=== PATIENT | male | born 1985 | race Caucasian/White ===

== ENCOUNTER 2019-01-01 19:59 | Emergency (ER) | payer MEDICAID ==
--- NOTE | 2019-01-01 20:11 | ERPHSYRPT ---
- History of Present Illness Time Seen by Provider: 01/01/19 20:11 Source: patient Exam Limitations: no limitations Physician History: 33 y/o white male iv drug user until he quit 9 days ago presents with flu like sx of body aches, nausea, no vomiting and yellow eyes for approx a week. his sig other has similar sx. pt noticed his bms slide attendant in color and dark urine present. he has heartburn and mild epigastric abd pain. Timing/Duration: day(s) (7) Severity: mild Associated Symptoms: nausea, vomiting, abdominal pain, loss of appetite, malaise , other (body aches) Allergies/Adverse Reactions: Penicillins Allergy (Verified 01/01/19 20:34) Home Medications: No Reportable Medications [No Reported Medications] 01/01/19 [History] - Review of Systems Constitutional: Malaise, Weakness Eyes: No Symptoms Ears, Nose, & Throat: No Symptoms Respiratory: No Symptoms Cardiac: No Symptoms Abdominal/Gastrointestinal: Abdominal Pain, Nausea, Vomiting, Appetite Changes, No Diarrhea Genitourinary Symptoms: No Symptoms Skin: Other (jaundiced) Neurological: No Symptoms Psychological: Drug Abuse Endocrine: No Symptoms Hematologic/Lymphatic: No Symptoms Immunological/Allergic: No Symptoms All Other Systems: Reviewed and Negative - Past Medical History Neurological History: No Pertinent History ENT History: No Pertinent History Cardiac History: No Pertinent History Respiratory History: No Pertinent History Endocrine Medical History: No Pertinent History Musculoskeletal History: No Pertinent History GI Medical History: No Pertinent History History: No Pertinent History Psycho-Social History: No Pertinent History - Past Surgical History Neuro Surgical History: No Pertinent History Cardiac: No Pertinent History Respiratory: No Pertinent History Gastrointestinal: No Pertinent History Genitourinary: No Pertinent History Musculoskeletal: No Pertinent History Male Surgical History: No Pertinent History - Nursing Vital Signs Nursing Vital Signs: Initial Vital Signs Temperature 98.5 F 01/01/19 20:35 Pulse Rate 105 H 01/01/19 20:35 Respiratory Rate 20 01/01/19 20:35 Blood Pressure 126/94 01/01/19 20:35 O2 Sat by Pulse Oximetry 100 01/01/19 20:35 Pain Scale Pain Intensity 4 - Physical Exam General Appearance: mild distress, alert, anxiety Eye Exam: scleral icterus Ears, Nose, Throat Exam: normal ENT inspection, dry mucous membranes Neck Exam: normal inspection, non-tender, supple, full range of motion Respiratory Exam: normal breath sounds, lungs clear, airway intact, No chest tenderness, No respiratory distress Cardiovascular Exam: regular rate/rhythm, normal heart sounds, normal peripheral pulses Gastrointestinal/Abdomen Exam: soft, normal bowel sounds, tenderness (mild epigastric), No guarding, No rebound Rectal Exam: not done Back Exam: normal inspection, normal range of motion, No CVA tenderness, No vertebral tenderness Extremity Exam: normal inspection, normal range of motion, pelvis stable Neurologic Exam: alert, oriented x 3, cooperative, 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 Skin Exam: jaundice Lymphatic Exam: No adenopathy SpO2 Interpretation: normal O2 Delivery: Room Air - Course Nursing assessment & vital signs reviewed: Yes Ordered Tests: Active Orders 24 hr Category Date Time Status IV Insertion STAT Care 01/01/19 20:48 Active ABDOMEN AND PELVIS W/0 CONTRAS [CT] Stat Exams 01/01/19 20:48 Completed AMYLASE Stat Lab 01/01/19 21:49 Received BLOOD CULTURE Stat Lab 01/01/19 20:48 Ordered CBC W DIFF Stat Lab 01/01/19 21:49 Completed CMP Stat Lab 01/01/19 21:49 Received LIPASE Stat Lab 01/01/19 21:49 Received Lactic Acid Stat Lab 01/01/19 21:19 Results [place] Screen Stat Lab 01/01/19 21:49 Completed UA W/RFX UR CULTURE Stat Lab 01/01/19 21:07 Completed Medication Summary Discontinued Medications Generic Name Dose Route Start Last Admin Trade Name Freq PRN Reason Stop Dose Admin Famotidine 40 mg 01/01/19 20:48 01/01/19 21:30 Pepcid 20 Mg Vial IV 01/01/19 20:49 40 mg STAT ONE Administration Famotidine Confirm 01/01/19 21:23 Pepcid 20 Mg Vial Administered 01/01/19 21:24 Dose 40 mg IV .STK-MED ONE Sodium Chloride 1,000 mls @ 999 mls/hr 01/01/19 20:48 01/01/19 22:35 Sodium Chloride 0.9% 1000 Ml IV 01/01/19 21:48 Infused .Q1H1M STA Infusion Sodium Chloride Confirm 01/01/19 21:23 Sodium Chloride 0.9% 1000 Ml Administered 01/01/19 21:24 Dose 1,000 mls @ ud .ROUTE .STK-MED ONE Ondansetron HCl 4 mg 01/01/19 20:48 01/01/19 21:27 Zofran 4 Mg/2 Ml Vial IV 01/01/19 20:49 4 mg STAT ONE Administration Ondansetron HCl Confirm 01/01/19 21:22 Zofran 4 Mg/2 Ml Vial Administered 01/01/19 21:23 Dose 4 mg .ROUTE .K-MED ONE Lab/Rad Data: Laboratory Result Diagrams 01/01/19 21:49 Laboratory Results 01/01/19 01/01/19 01/01/19 Range/Units 21:49 21:49 21:19 WBC 4.0 (4.0-10.5) K/mm3 RBC 5.40 (4.1-5.6) M/mm3 Hgb 15.4 (12.5-18.0) gm/dl Hct 46.9 (42-50) % MCV 86.9 (78-100) fl MCH 28.5 (26-32) pg MCHC 32.8 (32-36) g/dl RDW 13.9 (11.5-14.0) % Plt Count 209 (150-450) K/mm3 MPV 12.8 H (6-9.5) fl Gran % 60.4 (36.0-66.0) % Eos # (Auto) 0.04 (0-0.5) Absolute Lymphs (auto) 0.94 L (1.0-4.6) Absolute Monos (auto) 0.57 (0.0-1.3) Lymphocytes % 23.7 L (24.0-44.0) % Monocytes % 14.4 H (0.0-12.0) % Eosinophils % 1.0 (0.00-5.0) % Basophils % 0.5 (0.0-0.4) % Absolute Granulocytes 2.39 (1.4-6.9) Basophils # 0.02 (0-0.4) Lactic Acid 2.0 (0.4-2.0) Urine Color (YELLOW) Urine Appearance (CLEAR) Urine pH (5-6) Ur Specific [place] (1.005-1.025) Urine Protein (Negative) Urine Ketones (NEGATIVE) Urine Blood (0-5) Henry/ul Urine Nitrite (NEGATIVE) Urine Bilirubin (NEGATIVE) Urine Urobilinogen (0-1) mg/dL Ur Leukocyte Esterase (NEGATIVE) Urine WBC (Auto) (0-5) /HPF Urine RBC (Auto) (0-2) /HPF U Epithel Cells (Auto) (FEW) /HPF Urine Bacteria (Auto) (NEGATIVE) /HPF Urine Mucus (Auto) (NEGATIVE) /HPF Urine Culture Reflexed (NO) Urine Glucose (NEGATIVE) mg/dL Monoscreen POSITIVE (Negative) 01/01/19 Range/Units 21:07 WBC (4.0-10.5) K/mm3 RBC (4.1-5.6) M/mm3 Hgb (12.5-18.0) gm/dl Hct (42-50) % MCV (78-100) fl MCH (26-32) pg MCHC (32-36) g/dl RDW (11.5-14.0) % Plt Count (150-450) K/mm3 MPV (6-9.5) fl Gran % (36.0-66.0) % Eos # (Auto) (0-0.5) Absolute Lymphs (auto) (1.0-4.6) Absolute Monos (auto) (0.0-1.3) Lymphocytes % (24.0-44.0) % Monocytes % (0.0-12.0) % Eosinophils % (0.00-5.0) % Basophils % (0.0-0.4) % Absolute Granulocytes (1.4-6.9) Basophils # (0-0.4) Lactic Acid (0.4-2.0) Urine Color AGNES (YELLOW) Urine Appearance CLEAR (CLEAR) Urine pH 5.0 (5-6) Ur Specific [place] 1.020 (1.005-1.025) Urine Protein 30 (Negative) Urine Ketones NEGATIVE (NEGATIVE) Urine Blood NEGATIVE (0-5) Henry/ul Urine Nitrite NEGATIVE (NEGATIVE) Urine Bilirubin MODERATE (NEGATIVE) Urine Urobilinogen 4 (0-1) mg/dL Ur Leukocyte Esterase NEGATIVE (NEGATIVE) Urine WBC (Auto) 3-5 (0-5) /HPF Urine RBC (Auto) NONE (0-2) /HPF U Epithel Cells (Auto) NONE (FEW) /HPF Urine Bacteria (Auto) NONE (NEGATIVE) /HPF Urine Mucus (Auto) SLIGHT (NEGATIVE) /HPF Urine Culture Reflexed NO (NO) Urine Glucose NEGATIVE (NEGATIVE) mg/dL Monoscreen (Negative) - Progress Progress: improved, pain not gone completely, re-examined Progress Note: 01/01/19 23:13 ct abd/pelvis no acute process. Counseled pt/family regarding: lab results, diagnosis, need for follow-up, rad results - Departure Departure Disposition: Home Clinical Impression: Viral illness, Mononucleosis, Elevated liver enzymes Condition: Stable Critical Care Time: No Additional Instructions: drink plenty of fluids. follow up with primary doctor for further management and to obtain results from hepatitis profile. avoid further drug abuse.
[2019-01-01] MEDS ORDERED: Pepcid 20 MG VIAL IV ONE ×2 (20:48→21:23)
[2019-01-01] MEDS ORDERED: Sodium Chloride 0.9% 1000 ML 1,000 ML IV STA ×2 (20:48→23:24)
[2019-01-01] MEDS ORDERED: Zofran 4 MG/2 ML VIAL IV ONE (20:48)
[2019-01-01 21:17] LABS: Appearance CLEAR (CLEAR); Bilirubin MODERATE (NEGATIVE); Blood NEGATIVE Ery/ul (0-5); Glucose NEGATIVE (NEGATIVE); Ketones NEGATIVE (NEGATIVE); Leukocyte Esterase NEGATIVE (NEGATIVE); Mucus SLIGHT /HPF (NEGATIVE); Nitrite NEGATIVE (NEGATIVE); Protein,Urine Dip 30 (Negative); Urobilinogen 4 mg/dL (0-1)
[2019-01-01] MEDS ORDERED: Zofran 4 MG/2 ML VIAL ONE (21:22)
[2019-01-01] MEDS ORDERED: Sodium Chloride 0.9% 1000 ML 1,000 ML ONE ×2 (21:23→23:24)
[2019-01-01 21:47] LABS: BASOPHIL % 0.5 % (0.0-0.4); Basophil (Absolute #) 0.02 (0-0.4); Eosinophil (Absolute #) 0.04 (0-0.5); Granulocyte Absolute (ANC) 2.39 (1.4-6.9); Granulocytes % 60.4 % (36.0-66.0); Hematocrit 46.9 % (42-50); Hemoglobin 15.4 gm/dl (12.5-18.0); Lymphocyte (Absolute #) 0.94 (1.0-4.6); Lymphocytes % 23.7 % (24.0-44.0); Mean Cell Volume 86.9 fl (78-100); Mean Corpuscular Hemoglobin 28.5 pg (26-32); Mean Corpuscular Hgb Concent. 32.8 g/dl (32-36); Mean Platelet Volume 12.8 fl (6-9.5); Monocyte (Absolute #) 0.57 (0.0-1.3); Monocytes % 14.4 % (0.0-12.0); Platelet Count 209 K/mm3 (150-450); Red Cell Distribution Width 13.9 % (11.5-14.0)
[2019-01-01 21:59] LABS: ALBUMIN 3.5 g/dL (3.5-5.0); ALKALINE PHOSPHATASE 184 U/L (38-126); AMYLASE 76 U/L (30-110); ANION GAP 13.5 MEQ/L (5-15); BLOOD UREA NITROGEN 11 mg/dL (9-20); CHLORIDE 99 mmol/L (98-107); Calcium 8.8 mg/dL (8.4-10.2); Carbon Dioxide 27 mmol/L (22-30); Creatinine 1 0.88 mg/dL (0.66-1.25); Glucose 99 mg/dL (74-106); LIPASE 33 U/L (23-300); Potassium 3.4 mmol/L (3.5-5.1); SODIUM 136 mmol/L (137-145)
--- NOTE | 2019-01-01 22:33 | XRAY ---
Indication: Abdomen pain, vomiting, and jaundice 3 days. Multiple contiguous axial images obtained through the abdomen and pelvis without contrast as ordered. Comparison: None. Lung bases are clear. Heart is not enlarged. Mild distal esophageal wall thickening, possible esophagitis. Noncontrasted stomach and bowel loops appear nonobstructed. Normal appendix. Mild diffuse scattered colonic fecal debris including rectum. Gallbladder partially contracted without gallstones or biliary distention. No free fluid/air. Remaining liver, gallbladder, pancreas, spleen, adrenal glands, kidneys, ureters, bladder, and aorta appear unremarkable for noncontrast exam. Osseous structures intact. Impression: 1. Mild fecal stasis without obstruction. 2. Remaining CT abdomen/pelvis without contrast exam is negative. Comment: Preliminary interpretation was made by [facility]. No critical discrepancy. CTDI 14.37
[2019-01-01 23:16] LABS: SGOT/AST 2313 U/L (17-59); SGPT/ALT 3536 U/L (0-50)
[2019-01-01 23:42] LABS: Slide Review 1 YES
[2019-01-02 00:23] VITALS: BP 111/82; PULSE 97; O2SAT 99
[2019-01-02 21:22] LABS: HEPATITIS A IGM Reactive (Non Reactive); HEPATITIS B VIRUS CORE TOT AB Non Reactive (Non Reactive); Hepatitis B Surface Ab.Quant. <3.50 mIU/mL (0.00-8.49); Hepatitis B Surface Antigen Non Reactive (Non Reactive)
[2019-01-03 10:20] LABS: HEPATITIS C VIRUS ANTIBODY Weak Reactive (Non Reactive)
== END 2019-01-02 02:00 | disposition home or self-care (01) ==
LOC: ED 19:59
DX: B34.9 Viral infection, unspecified (principal); B27.90 Infectious mononucleosis, unspecified without complication; R74.8 Abnormal levels of other serum enzymes
CPT/HCPCS: 36000; 36415; 74176; 80053; 80074; 81001; 82150; 83605; 83690; 85025; 86308; 87040; 96360; 96361; 96374; 96375; 99284; J2405

== ENCOUNTER 2021-11-25 21:45 | Emergency (ER) | payer MEDICAID ==
[2021-11-25 23:20] LABS: Appearance CLEAR (CLEAR); Bilirubin NEGATIVE (NEGATIVE); Dipstick done @ ? MAIN LAB; Glucose NEGATIVE (NEGATIVE); Ketones NEGATIVE (NEGATIVE); Nitrite NEGATIVE (NEGATIVE); Ph 5.5 (5-6); Protein,Urine Dip NEGATIVE (Negative); RBC NEGATIVE Ery/ul (0-5); Specific Gravity >=1.030 (1.005-1.025); Urobilinogen 0.2 mg/dL (0-1)
[2021-11-25] MEDS ORDERED: Sodium Chloride 0.9% 1000 ML 1,000 ML ONE (23:22)
[2021-11-25 23:24] LABS: Mucus SLIGHT /HPF (NEGATIVE); Urine Cultured Indicated? NO
[2021-11-25] MEDS: Sodium Chloride 0.9% 1000 ML 1,000 ML IV SCH (23:29)
[2021-11-25 23:39] LABS: Absolute Neutrophil Ct (ANC) 4.22 x10^3/uL (1.4-6.9); Basophil (Absolute #) 0.08 x10^3/uL (0-0.4); Eosinophil % 4.3 % (0.00-5.0); Hematocrit 37.8 % (42-50); Hemoglobin 12.3 g/dL (12.5-18.0); Lymphocyte (Absolute #) 1.89 x10^3/uL (1.0-4.6); Mean Cell Volume 86.1 fL (78-100); Mean Corpuscular Hgb Concent. 32.5 g/dL (32-36); Monocyte (Absolute #) 0.49 x10^3/uL (0.0-1.3); Neutrophil % 60.5 % (36.0-66.0); Platelet Count 291 x10^3/uL (150-450); Red Blood Count 4.39 x10^6/uL (4.1-5.6); Red Cell Distribution Width 13.3 % (11.5-14.0)
[2021-11-25 23:52] LABS: ALBUMIN 3.9 g/dL (3.5-5.0); ALKALINE PHOSPHATASE 116 U/L (38-126); ANION GAP 13.1 MEQ/L (5-15); BLOOD UREA NITROGEN 16 mg/dL (9-20); CHLORIDE 103 mmol/L (98-107); Calcium 9.1 mg/dL (8.4-10.2); Carbon Dioxide 26 mmol/L (22-30); Creatinine 1 0.98 mg/dL (0.66-1.25); EST GLOMERULAR FILTRATION RATE > 60.0 ML/MIN; Glucose 95 mg/dL (74-106); Potassium 3.7 mmol/L (3.5-5.1); SGOT/AST 30 U/L (17-59); SGPT/ALT 28 U/L (0-50); SODIUM 138 mmol/L (137-145); Total Protein 7.3 g/dL (6.3-8.2)
[2021-11-26 00:23] VITALS: BP 119/71; PULSE 97; O2SAT 100
--- NOTE | 2021-11-26 00:49 | ERPHSYRPT ---
- History of Present Illness Time Seen by Provider: 11/25/21 22:30 Source: patient Exam Limitations: no limitations Patient Subjective Stated Complaint: pt states "I have been sick for a couple days. My lower back has been hurting and I had a red streak up my L arm the oth er day." Triage Nursing Assessment: Pt was laying down on the floor in waiting room, Pt ambulatory to room by self, pt alert and oriented x3, pt c/o general symptoms including neck pain and L flank pain, pt has hx of meth use, last used 4 days ago, pt afebrile, pt denies cough, fever, chest pain, or sob Physician History: Patient is a 36-year-old male presents to emergency department for evaluation of possible "blood infection". Patient admits to being an IV drug user. Patient used methamphetamine approximately 4 days ago. Patient observed a streak up his arm at that time and thought it was an infection. The streaking has since resolved. Patient has been experiencing some vague back pain. No change in bowel bladder function. No saddle anesthesia. Subjective fever and chills. Symptoms are mild to moderate in intensity. Patient declined pain medication. He voices no other complaints or concerns at this time. Timing/Duration: today Severity: moderate Modifying Factors: Improves With: movement (Movement and palpation to the low back reproduces back pain.) Associated Symptoms: denies symptoms Allergies/Adverse Reactions: Penicillins Allergy (Verified 11/25/21 22:11) Home Medications: No Reportable Medications [No Reported Medications] 01/01/19 [History] Hx Tetanus, Diphtheria Vaccination/Date Given: Yes Hx Influenza Vaccination/Date Given: No Hx Pneumococcal Vaccination/Date Given: No Immunizations Up to Date: No Travel Risk - International Travel Have you traveled outside of the country in past 3 weeks: No - Coronavirus Screening Are you exhibiting any of the following symptoms?: No Close contact with a COVID-19 positive Pt in past 14-21 Days: No - Vaccine Status Have you recieved a Covid-19 vaccination: No - Review of Systems Constitutional: No Symptoms, No Fever, No Chills Eyes: No Symptoms Ears, Nose, & Throat: No Symptoms Respiratory: No Symptoms, No Cough, No Dyspnea Cardiac: No Symptoms, No Chest Pain, No Edema, No Syncope Abdominal/Gastrointestinal: No Symptoms, No Abdominal Pain, No Nausea, No Vomiting, No Diarrhea Genitourinary Symptoms: No Symptoms, No Dysuria Musculoskeletal: No Symptoms, No Back Pain, No Neck Pain Skin: No Symptoms, No Rash Neurological: No Symptoms, No Dizziness, No Focal Weakness, No Sensory Changes Psychological: No Symptoms Endocrine: No Symptoms Hematologic/Lymphatic: No Symptoms Immunological/Allergic: No Symptoms All Other Systems: Reviewed and Negative - Past Medical History Pertinent Past Medical History: No Neurological History: No Pertinent History ENT History: No Pertinent History Cardiac History: No Pertinent History Respiratory History: No Pertinent History Endocrine Medical History: No Pertinent History Musculoskeletal History: No Pertinent History GI Medical History: Hepatitis, Ulcer History: No Pertinent History Psycho-Social History: Depression Male Reproductive Disorders: No Pertinent History - Past Surgical History Past Surgical History: Yes Neuro Surgical History: No Pertinent History Cardiac: No Pertinent History Respiratory: No Pertinent History Gastrointestinal: No Pertinent History Genitourinary: No Pertinent History Musculoskeletal: No Pertinent History Male Surgical History: No Pertinent History Other Surgical History: hernia repain at infancy and ACL repair at 19. - Social History Smoking Status: Never smoker How long have you smoked: years Exposure to second hand smoke: No Drug Use: marijuana, methamphetamines Patient Lives Alone: No - Nursing Vital Signs Nursing Vital Signs: Initial Vital Signs Temperature 98.7 F 11/25/21 22:12 Pulse Rate 106 H 11/25/21 22:12 Respiratory Rate 18 11/25/21 22:12 Blood Pressure 144/97 11/25/21 22:12 O2 Sat by Pulse Oximetry 100 11/25/21 22:12 Pain Scale Pain Intensity 5 - Physical Exam General Appearance: no apparent distress, alert Eye Exam: PERRL/EOMI, eyes nml inspection Ears, Nose, Throat Exam: normal ENT inspection, TMs normal, pharynx normal, moist mucous membranes Neck Exam: normal inspection, non-tender, supple, full range of motion Respiratory Exam: normal breath sounds, lungs clear, airway intact, No r espiratory distress Cardiovascular Exam: regular rate/rhythm, normal heart sounds, normal peripheral pulses Gastrointestinal/Abdomen Exam: soft, normal bowel sounds, No tenderness, No mass Back Exam: normal inspection, normal range of motion, No CVA tenderness, No vertebral tenderness Extremity Exam: normal inspection, normal range of motion, pelvis stable Neurologic Exam: alert, oriented x 3, cooperative, normal mood/affect, nml cerebellar function, nml station & gait, sensation nml, No motor deficits Skin Exam: normal color, warm, dry, No rash Lymphatic Exam: No adenopathy SpO2 Interpretation: normal SpO2: 100 O2 Delivery: Room Air - Course Nursing assessment & vital signs reviewed: Yes Ordered Tests: Active Orders 24 hr Category Date Time Status IV Insertion STAT Care 11/25/21 23:11 Active Pulse Oximetry (ED) STAT Care 11/25/21 23:11 Active BLOOD CULTURE Stat Lab 11/25/21 23:36 Received CBC W DIFF Stat Lab 11/25/21 23:35 Completed CMP Stat Lab 11/25/21 23:35 Completed Lactic Acid Stat Lab 11/25/21 23:24 Completed UA W/RFX CULTURE Stat Lab 11/25/21 23:13 Completed Medication Summary Generic Name Dose Route Start Last Admin Trade Name Freq PRN Reason Stop Dose Admin Sodium Chloride 1,000 mls @ 100 mls/hr 11/25/21 23:15 11/25/21 23:29 Sodium Chloride 0.9% 1000 Ml IV 12/25/21 23:14 100 mls/hr .Q10H JAN Administration Lab/Rad Data: Laboratory Result Diagrams 11/25/21 23:35 11/25/21 23:35 Laboratory Results 11/25/21 11/25/21 11/25/21 Range/Units 23:35 23:35 23:24 WBC 7.0 (4.0-10.5) x10^3/uL RBC 4.39 (4.1-5.6) x10^6/uL Hgb 12.3 L (12.5-18.0) g/dL Hct 37.8 L (42-50) % MCV 86.1 (78-100) fL MCH 28.0 (26-32) pg MCHC 32.5 (32-36) g/dL RDW 13.3 (11.5-14.0) % Plt Count 291 (150-450) x10^3/uL MPV 11.0 (7.5-11.0) fL Gran % 60.5 (36.0-66.0) % Immature Gran % (Auto) 0.1 (0.00-0.4) % Nucleat RBC Rel Count 0.0 (0.00-0.1) % Eos # (Auto) 0.30 (0-0.5) x10^3/uL Immature Gran # (Auto) 0.01 (0.00-0.03) x10^3u/L Absolute Lymphs (auto) 1.89 (1.0-4.6) x10^3/uL Absolute Monos (auto) 0.49 (0.0-1.3) x10^3/uL Absolute Nucleated RBC 0.00 (0.00-0.01) x10^3u/L Lymphocytes % 27.0 (24.0-44.0) % Monocytes % 7.0 (0.0-12.0) % Eosinophils % 4.3 (0.00-5.0) % Basophils % 1.1 (0.0-0.4) % Absolute Granulocytes 4.22 (1.4-6.9) x10^3/uL Basophils # 0.08 (0-0.4) x10^3/uL Sodium 138 (137-145) mmol/L Potassium 3.7 (3.5-5.1) mmol/L Chloride 103 (98-107) mmol/L Carbon Dioxide 26 (22-30) mmol/L Anion Gap 13.1 (5-15) MEQ/L BUN 16 (9-20) mg/dL Creatinine 0.98 (0.66-1.25) mg/dL Estimated GFR > 60.0 ML/MIN Glucose 95 (74-106) mg/dL Lactic Acid 1.9 (0.4-2.0) Calcium 9.1 (8.4-10.2) mg/dL Total Bilirubin 0.10 L (0.2-1.3) mg/dL AST 30 (17-59) U/L ALT 28 (0-50) U/L Alkaline Phosphatase 116 (38-126) U/L Serum Total Protein 7.3 (6.3-8.2) g/dL Albumin 3.9 (3.5-5.0) g/dL Urinalys Dipstick Clnc Urine Color (YELLOW) Urine Appearance (CLEAR) Urine pH (5-6) Ur Specific [place] (1.005-1.025) POC Urine Protein Conf (Negative) Urine Ketones (NEGATIVE) Urine Nitrite (NEGATIVE) Urine Bilirubin (NEGATIVE) Urine Urobilinogen (0-1) mg/dL Urine Leukocytes (NEGATIVE) Urine WBC (Auto) (0-5) /HPF Urine RBC (Auto) (0-2) /HPF U Epithel Cells (Auto) (FEW) /HPF Urine Bacteria (Auto) (NEGATIVE) /HPF Urine RBC (0-5) Henry/ul Urine Mucus (Auto) (NEGATIVE) /HPF Ur Culture Indicated? Urine Glucose (NEGATIVE) mg/dL 11/25/21 Range/Units 23:13 WBC (4.0-10.5) x10^3/uL RBC (4.1-5.6) x10^6/uL Hgb (12.5-18.0) g/dL Hct (42-50) % MCV (78-100) fL MCH (26-32) pg MCHC (32-36) g/dL RDW (11.5-14.0) % Plt Count (150-450) x10^3/uL MPV (7.5-11.0) fL Gran % (36.0-66.0) % Immature Gran % (Auto) (0.00-0.4) % Nucleat RBC Rel Count (0.00-0.1) % Eos # (Auto) (0-0.5) x10^3/uL Immature Gran # (Auto) (0.00-0.03) x10^3u/L Absolute Lymphs (auto) (1.0-4.6) x10^3/uL Absolute Monos (auto) (0.0-1.3) x10^3/uL Absolute Nucleated RBC (0.00-0.01) x10^3u/L Lymphocytes % (24.0-44.0) % Monocytes % (0.0-12.0) % Eosinophils % (0.00-5.0) % Basophils % (0.0-0.4) % Absolute Granulocytes (1.4-6.9) x10^3/uL Basophils # (0-0.4) x10^3/uL Sodium (137-145) mmol/L Potassium (3.5-5.1) mmol/L Chloride (98-107) mmol/L Carbon Dioxide (22-30) mmol/L Anion Gap (5-15) MEQ/L BUN (9-20) mg/dL Creatinine (0.66-1.25) mg/dL Estimated GFR ML/MIN Glucose (74-106) mg/dL Lactic Acid (0.4-2.0) Calcium (8.4-10.2) mg/dL Total Bilirubin (0.2-1.3) mg/dL AST (17-59) U/L ALT (0-50) U/L Alkaline Phosphatase (38-126) U/L Serum Total Protein (6.3-8.2) g/dL Albumin (3.5-5.0) g/dL Urinalys Dipstick Clnc MAIN LAB Urine Color YELLOW (YELLOW) Urine Appearance CLEAR (CLEAR) Urine pH 5.5 (5-6) Ur Specific [place] >=1.030 (1.005-1.025) POC Urine Protein Conf NEGATIVE (Negative) Urine Ketones NEGATIVE (NEGATIVE) Urine Nitrite NEGATIVE (NEGATIVE) Urine Bilirubin NEGATIVE (NEGATIVE) Urine Urobilinogen 0.2 (0-1) mg/dL Urine Leukocytes NEGATIVE (NEGATIVE) Urine WBC (Auto) NONE (0-5) /HPF Urine RBC (Auto) NONE (0-2) /HPF U Epithel Cells (Auto) NONE (FEW) /HPF Urine Bacteria (Auto) NONE (NEGATIVE) /HPF Urine RBC NEGATIVE (0-5) Henry/ul Urine Mucus (Auto) SLIGHT (NEGATIVE) /HPF Ur Culture Indicated? NO Urine Glucose NEGATIVE (NEGATIVE) mg/dL - Progress Progress: improved Progress Note: Patient is a 36-year-old male intravenous drug user presents to our ED with complaints of chills subjective fever back pain. Spinal epidural abscess is on the differential. Patient refused imaging studies. We offered admission for MRI to rule out spinal epidural abscess but patient refused. Patient requesting to be discharged. Patient states he will follow-up with his primary care doctor to obtain an outpatient MRI. Patient will leave AGAINST MEDICAL ADVICE. Patient states he has obligations at home to attend to. Patient is of sound mind. Patient is appropriate to make informed and independent medical decisions. Patient understands that leaving AGAINST MEDICAL ADVICE can result in delayed diagnosis, increased risk of morbidity, mortality, short and long-term disability including . In spite of these risks, patient has decided to leave AGAINST MEDICAL ADVICE. Patient understands that he may return to our ED at any point if he reconsiders. Patient agrees to follow-up with his primary care doctor within 48 hours for reevaluation. Patient voices no other complaints or concerns at this time. We will release p atient AGAINST MEDICAL ADVICE per their request. Portions of this note were created with voice recognition technology. There may be grammatical, spelling, punctuation or sound alike errors 11/26/21 00:43 Counseled pt/family regarding: lab results, diagnosis, need for follow-up - Departure Departure Disposition: AMA Clinical Impression: IVDU (intravenous drug user), Back pain Condition: Stable Critical Care Time: No Referrals: DOCTOR,NO FAMILY [Primary Care Provider] - Follow up/PCP as directed Additional Instructions: Discharge/Care Plan EPIFANIO SALDANA was seen on 11/26/21 in the Emergency Room. The patient was counseled regarding Diagnosis,Lab results, Imaging studies, need for follow up and when to return to the Emergency Room. Prescriptions given: Discharge Note I have spoken with the patient and/or caregivers. I have explained the patient's condition, diagnosis and treatment plan based on the information available to me at this time. I have answered the patient's and/or caregiver's questions and addressed any concerns. The patient and/or caregivers have as good understanding of the patient's diagnosis, condition and treatment plan as can be expected at this point. The vital signs have been stable. The patient's condition is stable and appropriate for discharge from the emergency department. The patient will pursue further outpatient evaluation with the primary care physician or other designated or consulting physician as outlined in the discharge instructions. The patient and/or caregivers are agreeable to this plan of care and follow-up instructions have been explained in detail. The patient and/or caregivers have received these instruction. The patient/and or caregivers are aware that any significant change in condition or worsening of symptoms should prompt an immediate return to this or the closest emergency department or call 911.
== END 2021-11-26 00:54 | disposition left against medical advice (07) ==
LOC: ED 21:45
DX: F19.90 Other psychoactive substance use, unspecified, uncomplicated (principal); M54.50 Low back pain, unspecified; Z28.310 Unvaccinated for COVID-19
CPT/HCPCS: 36000; 36415; 80053; 81015; 83605; 85025; 87040; 94760; 99283

== ENCOUNTER 2023-01-14 13:57 | Emergency (ER) | payer MEDICAID, OTHER ==
[2023-01-14 14:39] VITALS: TEMP 98.4
[2023-01-14] MEDS ORDERED: Sodium Chloride 0.9% 1000 ML 1,000 ML IV STA (15:18)
[2023-01-14 15:20] VITALS: O2SAT 98
[2023-01-14] MEDS ORDERED: TORAdol 30 mg Injection IV ONE (15:29)
[2023-01-14] MEDS ORDERED: Norflex 60 MG/2 ML IV ONE (15:30)
[2023-01-14 16:54] LABS: Absolute Neutrophil Ct (ANC) 8.57 x10^3/uL (1.4-6.9); BASOPHIL % 0.4 % (0.0-0.4); Basophil (Absolute #) 0.04 x10^3/uL (0-0.4); Eosinophil % 1.5 % (0.00-5.0); Eosinophil (Absolute #) 0.16 x10^3/uL (0-0.5); Hematocrit 48.4 % (42-50); IMMATURE GRAN # 0.04 x10^3u/L (0.00-0.03); IMMATURE GRAN % 0.4 % (0.00-0.4); Lymphocyte (Absolute #) 1.34 x10^3/uL (1.0-4.6); Lymphocytes % 12.7 % (24.0-44.0); Mean Cell Volume 84.8 fL (78-100); Mean Corpuscular Hgb Concent. 33.1 g/dL (32-36); Mean Platelet Volume 10.4 fL (7.5-11.0); Monocyte (Absolute #) 0.39 x10^3/uL (0.0-1.3); Monocytes % 3.7 % (0.0-12.0); Neutrophil % 81.3 % (36.0-66.0); Platelet Count 340 x10^3/uL (150-450); Red Blood Count 5.71 x10^6/uL (4.1-5.6); Red Cell Distribution Width 12.7 % (11.5-14.0); White Blood Count 10.5 x10^3/uL (4.0-10.5)
[2023-01-14] MEDS ORDERED: BENADRYL 50 MG/ML IV ONE (17:02)
--- NOTE | 2023-01-14 17:03 | ERPHSYRPT ---
- History of Present Illness Time Seen by Provider: 01/14/23 14:15 Source: patient Exam Limitations: no limitations Patient Subjective Stated Complaint: C/O lower back and bilateral flank pain that started last night. Triage Nursing Assessment: Patient brought back to ER in W/C. Patient able to transfer self from chair to bed. He is alert and oriented. No SOB. Skin tone normal to area of pain. Several small, red welts noted to BUE, BLE, back that patient reports he has been treating with benadryl at home. Physician History: 37 years old presented in the ER with chief complaint of bilateral low back pain/flank pain since yesterday moderate intensity, nonradiating, aggravated with activity and better with resting. Patient denies any numbness tingling or weakness of lower extremities. Denies any fall or trauma. Denies any midline back pain. Patient does report having hives on the different areas of the body for the last 2 to 3 days, improved with Benadryl. Denies any known allergen for this. Denies any urinary complaints. No fever or chills reported. Allergies/Adverse Reactions: Penicillins Allergy (Verified 01/14/23 14:28) Home Medications: No Reportable Medications [No Reported Medications] 01/01/19 [History] Hx Tetanus, Diphtheria Vaccination/Date Given: Yes Hx Influenza Vaccination/Date Given: No Hx Pneumococcal Vaccination/Date Given: No Immunizations Up to Date: Yes Travel Risk - International Travel Have you traveled outside of the country in past 3 weeks: No - Coronavirus Screening Are you exhibiting any of the following symptoms?: No Close contact with a COVID-19 positive Pt in past 14-21 Days: No - Vaccine Status Have you recieved a Covid-19 vaccination: No - Review of Systems Constitutional: No Symptoms Eyes: No Symptoms Ears, Nose, & Throat: No Symptoms Respiratory: No Symptoms Cardiac: No Symptoms Abdominal/Gastrointestinal: No Symptoms Genitourinary Symptoms: Flank Pain Musculoskeletal: Back Pain Skin: Rash Neurological: No Symptoms Endocrine: No Symptoms Hematologic/Lymphatic: No Symptoms - Past Medical History Pertinent Past Medical History: Yes Neurological History: No Pertinent History ENT History: No Pertinent History Cardiac History: No Pertinent History Respiratory History: No Pertinent History Endocrine Medical History: No Pertinent History Musculoskeletal History: No Pertinent History GI Medical History: Hepatitis, Ulcer History: No Pertinent History Psycho-Social History: Depression Male Reproductive Disorders: No Pertinent History - Past Surgical History Past Surgical History: Yes Neuro Surgical History: No Pertinent History Cardiac: No Pertinent History Respiratory: No Pertinent History Gastrointestinal: Hernia Repair Genitourinary: No Pertinent History Musculoskeletal: No Pertinent History Male Surgical History: No Pertinent History Other Surgical History: hernia repain at infancy and ACL repair at 19. - Social History Smoking Status: Never smoker How long have you smoked: years Exposure to second hand smoke: No Drug Use: marijuana Patient Lives Alone: No - Nursing Vital Signs Nursing Vital Signs: Initial Vital Signs Temperature 98.4 F 01/14/23 13:57 Pulse Rate 91 H 01/14/23 13:57 Respiratory Rate 19 01/14/23 13:57 Blood Pressure 116/84 01/14/23 13:57 O2 Sat by Pulse Oximetry 97 01/14/23 13:57 Pain Scale Pain Intensity [Lower back] 10 Pain Intensity 9 - Physical Exam General Appearance: no apparent distress, alert Eye Exam: PERRL/EOMI Ears, Nose, Throat Exam: normal ENT inspection, pharynx normal Neck Exam: normal inspection, supple, full range of motion Respiratory Exam: normal breath sounds, lungs clear Cardiovascular Exam: regular rate/rhythm, normal heart sounds Gastrointestinal Exam: soft, normal bowel sounds, No tenderness Back Exam: normal inspection, normal range of motion, decreased range of motion, muscle spasm, point tenderness (Bilateral sacroiliac area. Bilateral lumbar paraspinal area muscle spasm. No midline tenderness at all.), No CVA tenderness, No vertebral tenderness Extremity Exam: normal inspection, normal range of motion, pelvis stable Neurologic Exam: alert, oriented x 3, cooperative, lawyer II-XII nml as tested, normal mood/affect Skin Exam: normal color, other (Small distinct hives on the lower extremities and upper arms. Blanchable, nontender, no increased temperature.) SpO2 Interpretation: normal SpO2: 98 O2 Delivery: Room Air Ordered Tests: Active Orders 24 hr Category Date Time Status AMA [Release AMA] OM.NOW Care 01/14/23 20:30 Active IV Insertion STAT Care 01/14/23 15:29 Active NPO (ED) STAT Care 01/14/23 15:29 Active ABDOMEN AND PELVIS W/0 CONTRAS [CT] Stat Exams 01/14/23 15:30 Completed RECONSTRUCTION [CT] Stat Exams 01/14/23 18:30 Taken CBC W DIFF Stat Lab 01/14/23 16:50 Completed CMP Stat Lab 01/14/23 16:50 Completed UA W/RFX UR CULTURE Stat Lab 01/14/23 16:26 Completed Medication Summary Discontinued Medications Generic Name Dose Route Start Last Admin Trade Name Kevin PRN Reason Stop Dose Admin Hydrocodone Bitart/Acetaminophen 1 tablet 01/14/23 18:30 01/14/23 18:38 Hydrocodone/Acetamin 10-325 Mg Tablet PO 01/14/23 18:31 1 tablet ONCE STA Administration Hydrocodone Bitart/Acetaminophen Confirm 01/14/23 18:37 Hydrocodone/Acetamin 10-325 Mg Tablet Administered 01/14/23 18:38 Dose 1 tablet .ROUTE .STK-MED ONE Diphenhydramine HCl 25 mg 01/14/23 17:02 01/14/23 17:14 Diphenhydramine Hcl 50 Mg/Ml Vial IV 01/14/23 17:03 Not Given STAT ONE Diphenhydramine HCl 25 mg 01/14/23 17:13 01/14/23 17:23 Diphenhydramine Hcl 50 Mg/Ml Vial IM 01/14/23 17:14 25 mg STAT ONE Administration Diphenhydramine HCl Confirm 01/14/23 17:17 Diphenhydramine Hcl 50 Mg/Ml Vial Administered 01/14/23 17:18 Dose 50 mg .ROUTE .STK-MED ONE Sodium Chloride 1,000 mls @ 999 mls/hr 01/14/23 15:18 01/14/23 17:14 Sodium Chloride 0.9% 1000 Ml IV 01/14/23 16:18 Not Given .Q1H1M STA Ketorolac Tromethamine 30 mg 01/14/23 15:29 01/14/23 17:14 Ketorolac Tromethamine 30 Mg/Ml Inj IV 01/14/23 15:30 Not Given STAT ONE Ketorolac Tromethamine 30 mg 01/14/23 17:13 01/14/23 17:21 Ketorolac Tromethamine 30 Mg/Ml Inj IM 01/14/23 17:14 30 mg STAT ONE Administration Ketorolac Tromethamine Confirm 01/14/23 17:17 Ketorolac Tromethamine 30 Mg/Ml Inj Administered 01/14/23 17:18 Dose 30 mg .ROUTE .STK-MED ONE Orphenadrine Citrate 60 mg 01/14/23 15:30 01/14/23 17:15 Orphenadrine Citrate 60 Mg/2 Ml Vial IV 01/14/23 15:31 Not Given STAT ONE Orphenadrine Citrate 60 mg 01/14/23 17:13 01/14/23 17:18 Orphenadrine Citrate 60 Mg/2 Ml Vial IM 01/14/23 17:14 60 mg STAT ONE Administration Orphenadrine Citrate Confirm 01/14/23 17:17 Orphenadrine Citrate 60 Mg/2 Ml Vial Administered 01/14/23 17:18 Dose 60 mg .ROUTE .STK-MED ONE Triamcinolone Acetonide 60 mg 01/14/23 18:43 01/14/23 19:05 Triamcinolone Acetonide 40 Mg/Ml Ml IM 01/14/23 18:44 60 mg STAT ONE Administration Triamcinolone Acetonide Confirm 01/14/23 19:04 Triamcinolone Acetonide 40 Mg/Ml Ml Administered 01/14/23 19:05 Dose 80 mg .ROUTE .STK-MED ONE Lab/Rad Data: Laboratory Result Diagrams 01/14/23 16:50 01/14/23 16:50 Laboratory Results 01/14/23 01/14/23 01/14/23 Range/Units 16:50 16:50 16:26 WBC 10.5 (4.0-10.5) x10^3/uL RBC 5.71 H (4.1-5.6) x10^6/uL Hgb 16.0 (12.5-18.0) g/dL Hct 48.4 (42-50) % MCV 84.8 (78-100) fL MCH 28.0 (26-32) pg MCHC 33.1 (32-36) g/dL RDW 12.7 (11.5-14.0) % Plt Count 340 (150-450) x10^3/uL MPV 10.4 (7.5-11.0) fL Gran % 81.3 H (36.0-66.0) % Immature Gran % (Auto) 0.4 (0.00-0.4) % Nucleat RBC Rel Count 0.0 (0.00-0.1) % Eos # (Auto) 0.16 (0-0.5) x10^3/uL Immature Gran # (Auto) 0.04 H (0.00-0.03) x10^3u/L Absolute Lymphs (auto) 1.34 (1.0-4.6) x10^3/uL Absolute Monos (auto) 0.39 (0.0-1.3) x10^3/uL Absolute Nucleated RBC 0.00 (0.00-0.01) x10^3u/L Lymphocytes % 12.7 L (24.0-44.0) % Monocytes % 3.7 (0.0-12.0) % Eosinophils % 1.5 (0.00-5.0) % Basophils % 0.4 (0.0-0.4) % Absolute Granulocytes 8.57 H (1.4-6.9) x10^3/uL Basophils # 0.04 (0-0.4) x10^3/uL Sodium 137 (137-145) mmol/L Potassium 3.8 (3.5-5.1) mmol/L Chloride 101 (98-107) mmol/L Carbon Dioxide 24 (22-30) mmol/L Anion Gap 15.7 H (5-15) MEQ/L BUN 14 (9-20) mg/dL Creatinine 0.95 (0.66-1.25) mg/dL Estimated GFR > 60.0 ML/MIN Glucose 129 H (74-106) mg/dL Calcium 9.8 (8.4-10.2) mg/dL Total Bilirubin 0.50 (0.2-1.3) mg/dL AST 39 (17-59) U/L ALT 47 (0-50) U/L Alkaline Phosphatase 139 H (38-126) U/L Serum Total Protein 7.8 (6.3-8.2) g/dL Albumin 4.5 (3.5-5.0) g/dL Urine Color Yellow (Yellow) Urine Appearance Clear (Clear) Urine pH 6.0 (4.6-8.0) Ur Specific [place] 1.020 (1.005-1.030) Urine Protein Negative (Negative) Urine Glucose (UA) Negative (Negative) mg/dL Urine Ketones Trace A (Negative) Urine Blood Negative (Negative) Urine Nitrite Negative (Negative) Urine Bilirubin Negative (Negative) Urine Urobilinogen 1.0 A (0.2) mg/dL Ur Leukocyte Esterase Trace A (Negative) U Hyaline Cast (Auto) NONE SEEN (0-2) /LPF Urine Microscopic RBC 0-2 (0-5) /HPF Urine Microscopic WBC 0-2 (0-5) /HPF Ur Epithelial Cells Rare (None Seen) /HPF Urine Bacteria None Seen (None Seen) /HPF Urine Sperm Few A (None Seen) /HPF Urine Culture Reflexed NO (NO) - Progress Progress: improved, re-examined Progress Note: 01/14/23 17:02 37 years old presented in the ER with chief complaint of bilateral low back pain/flank pain since yesterday moderate intensity, nonradiating, aggravated with activity and better with resting. Patient denies any numbness tingling or weakness of lower extremities. Denies any fall or trauma. Denies any midline back pain. Patient does report having hives on the different areas of the body for the last 2 to 3 days, improved with Benadryl. Denies any known allergen for this. Denies any urinary complaints. No fever or chills reported. 01/14/23 20:42 Patient has tenderness bilateral sacroiliac area. No definite or midline tenderness. Reproducible pain with movements of lower extremities. Intact neurovascular in lower extremities. Patient does have lumbar paraspinal spasm. He is given Toradol and Norflex for symptomatic relief and also Benadryl. Work-up showed normal white count, fairly unremarkable chemistries and no definitive UTI. I have obtained CT abdomen pelvis without contrast which is negative for any acute obstructive uropathy or any all other acute emergent findings. Patient does have some element of constipation and recommended taking stool softener. Does have CT evidence of small hiatal hernia and some esophageal thickening which patient denies having any GERD symptoms. Patient does have left lower lobe lung nodule which is noncalcified and needs further e valuation. I have discussed with patient and family and need for outpatient dedicated CT with contrast for further evaluation of the nodule. I have discussed the results of work-up and plan of outpatient follow-up and continue with NSAIDs and muscle relaxants to go home but patient report his pain is not completely resolved and is having difficulty mobility. I have given him Steptoe and done reconstruction of lumbar spine as well which is negative. I have also given him a shot of Kenalog which would help with his back as well as with the hives he has. Before I went back to discuss the results of reconstruction of lumbar spine patient walked out of the emergency room without informing anyone. Counseled pt/family regarding: lab results, diagnosis, need for follow-up, rad results Medical Desision Making - Independent Historian Additional History obtained from: Spouse - Diagnostic Testing Radiological Interpretation: Reviewed by me - Departure Departure Disposition: AMA (Eloped) Clinical Impression: Low back strain, Lung nodule, Dermatitis, Constipation Condition: Stable Critical Care Time: No Referrals: DOCTOR,NO FAMILY [Primary Care Provider] - Follow up/PCP as directed
[2023-01-14 17:06] LABS: Appearance Clear (Clear); Bacteria None Seen /HPF (None Seen); Bilirubin Negative (Negative); Blood Negative (Negative); Glucose, Urine Negative (Negative); Hyaline Casts NONE SEEN /LPF (0-2); Ketones Trace (Negative); Leukocyte Esterase Trace (Negative); Nitrite Negative (Negative); Protein,Urine Dip Negative (Negative); RBC 0-2 /HPF (0-5); WBC 0-2 /HPF (0-5)
[2023-01-14 17:07] LABS: ADD URINE CULTURE? NO (NO); Epithelial Cells Rare /HPF (None Seen); Sperm Few /HPF (None Seen)
[2023-01-14 17:08] LABS: ALBUMIN 4.5 g/dL (3.5-5.0); ALKALINE PHOSPHATASE 139 U/L (38-126); ANION GAP 15.7 MEQ/L (5-15); BLOOD UREA NITROGEN 14 mg/dL (9-20); CHLORIDE 101 mmol/L (98-107); Calcium 9.8 mg/dL (8.4-10.2); Carbon Dioxide 24 mmol/L (22-30); Creatinine 1 0.95 mg/dL (0.66-1.25); EST GLOMERULAR FILTRATION RATE > 60.0 ML/MIN; Glucose 129 mg/dL (74-106); Potassium 3.8 mmol/L (3.5-5.1); SGOT/AST 39 U/L (17-59); SGPT/ALT 47 U/L (0-50); SODIUM 137 mmol/L (137-145); Total Protein 7.8 g/dL (6.3-8.2)
[2023-01-14] MEDS ORDERED: Norflex 60 MG/2 ML IM ONE (17:13)
[2023-01-14] MEDS ORDERED: TORAdol 30 mg Injection IM ONE (17:13)
[2023-01-14] MEDS ORDERED: BENADRYL 50 MG/ML IM ONE (17:13)
[2023-01-14] MEDS ORDERED: Norflex 60 MG/2 ML ONE (17:17)
[2023-01-14] MEDS ORDERED: BENADRYL 50 MG/ML ONE (17:17)
[2023-01-14] MEDS ORDERED: TORAdol 30 mg Injection ONE (17:17)
--- NOTE | 2023-01-14 17:41 | XRAY ---
Indication: Low back/flank pain. Multiple contiguous axial images obtained through the abdomen and pelvis without contrast using renal stone protocol. Comparison: January 01, 2019 Lung bases demonstrates new 1.1 x 1.9 cm medial left lower lobe indeterminant noncalcified nodule. Heart not enlarged. New small hiatal hernia. Distal esophagus again demonstrates circumferential wall thickening, possible reflux esophagitis. No renal calculus or evidence for obstructive uropathy in either system. Noncontrasted stomach and bowel loops appear nonobstructed with normal appearing appendix. Again mild diffuse scattered colonic fecal debris throughout. No free fluid/air. Remaining liver, gallbladder, pancreas, spleen, adrenal glands, kidneys, ureters, bladder, and aorta are unremarkable for noncontrast exam. Osseous structures intact. No ventral or inguinal hernias. Impression: 1. Negative renal calculus or evidence for obstructive uropathy. 2. New left lower lobe indeterminant noncalcified nodule. Outside comparison studies recommended if available. If not, CT chest recommended to establish baseline. PET/CT may yield further information. 3. New small hiatal hernia. Again distal esophageal circumferential thickening, possible reflux esophagitis. 4. Again mild diffuse fecal stasis.
[2023-01-14 18:25] VITALS: PULSE 82; RESP 16
[2023-01-14] MEDS ORDERED: HYDROCODONE-ACETAMIN 10-325 MG PO STA (18:30)
[2023-01-14] MEDS ORDERED: HYDROCODONE-ACETAMIN 10-325 MG ONE (18:37)
[2023-01-14] MEDS ORDERED: Kenalog-40 IM ONE (18:43)
[2023-01-14] MEDS ORDERED: Kenalog-40 ONE (19:04)
[2023-01-14 20:30] VITALS: BP 131/84
--- NOTE | 2023-01-15 08:38 | XRAY ---
Indication: Low back pain. Sagittal, coronal, and axial reconstruction images of the lumbar spine obtained using the raw data from same day CT abdomen/pelvis exam. Axial images negative for acute fracture, large disc herniation, or spinal canal stenosis. Facets are symmetric. Sagittal and coronal reformatted images demonstrate normal alignment with vertebral body heights/disc spaces maintained. CT abdomen/pelvis reported separately. Impression: Negative CT lumbar spine.
== END 2023-01-14 20:23 | disposition left against medical advice (07) ==
LOC: ED 13:57
DX: S39.012A Strain of muscle, fascia and tendon of lower back, initial encounter (principal); R91.1 Solitary pulmonary nodule; L30.9 Dermatitis, unspecified; K59.00 Constipation, unspecified; R10.9 Unspecified abdominal pain; Z28.310 Unvaccinated for COVID-19
CPT/HCPCS: 36415; 74176; 76376; 80053; 81001; 85025; 96372; 99284; J1200; J1885; J2360; J3301; A9270-GY